=== PATIENT | male | born 1960 | race Caucasian/White ===

== ENCOUNTER 2023-04-21 11:36 | Outpatient (AMB) | payer OTHER, SELFPAY ==
--- NOTE | 2023-04-21 11:41 | MHC.OFFVIS ---
Intake Intake Visit Reasons: BPH Intake Note: New Patient presents for BPH/urgency/incontinence Urology Medications: none Blood Thinner: none PVR: 0ml's Size Worker Required: Yes Size Worker Name: Luisana Accompanied by: Self / Same As Patient Allergies No Known Allergies Allergy (Verified 04/21/23 20:35) Medication List - Last Reconciled 04/21/23 by LLOYD Steven No Known Home Meds HPI HPI Comments History of Present Illness Details Mariano is a 63-year-old male patient of Dr. Guillermo Dias. He has a past medical history of BPH, anxiety, chronic kidney disease, and allergic rhinitis. He presents to the office today as a new patient for ongoing lower urinary tract symptoms. In discussion with the patient today he reports to be doing and feeling well. He reports noting over the last year to be having intermittent episodes of urinary incontinence and frequency. He reports noting when he eats blueberries it causes urinary frequency. He reports following up with the previous urologist in [place] however was prescribed medications for his bladder/prostate in discusses his frustration with providers prescribing medications. He discusses at length believing in practicing functional medicine. He reports feeling medications make things worse. He discusses following up with a functional chief writer for his ongoing health issues. When asked he denies nocturia, hematuria, dysuria, foul smelling urine, changes to urinary stream, flank pain, fever, and or chills. He discusses practicing Kegel exercises to assist with bladder control however continues to have intermittent episodes of urinary frequency with episodes of incontinence if not near a bathroom. Discussed obtaining retroperitoneal ultrasound for further assessment evaluation as well as PSA. Patient discusses at length his reluctancy to having further workup. FRANCA offered however deferred. [facility] Medical History Chronic kidney disease BPH (benign prostatic hyperplasia) Anxiety Allergic rhinitis Review of Systems Const All systems reviewed & are unremarkable except as noted in HPI and below Reports no additional complaints Eyes Reports no additional complaints ENT Reports no additional complaints Card Reports no additional complaints Resp Reports no additional complaints GI Reports no additional complaints Reports as per HPI Musc Reports no additional complaints Neuro Reports no additional complaints Psych Reports no additional complaints Endo Reports no additional complaints Phil/Lymph Reports no additional complaints Aller/Immun Reports no additional complaints Physical Exam Const General: cooperative, healthy appearing, comfortable, no acute distress, well developed, alert and awake Orientation/consciousness: patient oriented x3 Limitations: no limitations HEENT Head: Yes normal to inspection, Yes normocephalic and Yes atraumatic Ears: hearing grossly normal bilaterally Eyes General: appearance normal, both eyes and all related structures Neck Neck: Yes normal visual inspection and Yes trachea midline Chest Chest palpation & inspection: normal inspection of the chest Resp Effort & Inspection: normal respiratory effort and able to speak in complete sentences Cardio Rate: regular rate GI Inspection: Yes normal to inspection General: Yes no CVA tenderness Back/Spine/Pelvis Back: no CVA tenderness Skin General skin exam: no rashes or lesions noted Neuro General: patient oriented x3 Extrem General: Yes normal to inspection Psych Appearance: grossly normal and well kempt Mental Status: mental status grossly normal Speech and movement: Normal speech and movement present and Clear speech present Affect: normal affect Attitude: cooperative Thought process: Normal thought process present Thought content: Normal thought content present Insight: Good insight present (Psych) Judgement: Good judgement present (Psych) Office Procedures Post Void Residual Post Residual Void Post Void Residual (PVR): 0 [id number] Void Residual by ultrasound Results AMB Urinalysis, Automated UA Leukoctes 0 Sharda/uL Last Edit by [employer] on 04/21/23 12:07 UA Nitrite Negative Last Edit by [employer] on 04/21/23 12:07 UA Urobilinogen 0.2 mg/dL Last Edit by [employer] on 04/21/23 12:07 UA Protein 0 mg/dL Last Edit by [employer] on 04/21/23 12:07 UA pH 6.0 Last Edit by [employer] on 04/21/23 12:07 UA Blood 0 Tk/uL Last Edit by [employer] on 04/21/23 12:07 UA Specific [place] 1.015 Last Edit by [employer] on 04/21/23 12:07 UA Ketone Negative Last Edit by [employer] on 04/21/23 12:07 UA Bilirubin 0 mg/dL Last Edit by [employer] on 04/21/23 12:07 UA Glucose 0 mg/dL Last Edit by [employer] on 04/21/23 12:07 Results Reviewed Results Reviewed: Laboratory Last Values Urine pH (Auto) 6.0 04/21/23 11:42 Specific [place] (Auto) 1.015 04/21/23 11:42 Urine Protein (Auto) 0 mg/dL 04/21/23 11:42 Glucose (UA)(Auto) 0 mg/dL 04/21/23 11:42 Urine Ketones (Auto) Negative 04/21/23 11:42 Urine Blood (Auto) 0 Tk/uL 04/21/23 11:42 Urine Nitrite (Auto) Negative 04/21/23 11:42 Urine Bilirubin (Auto) 0 mg/dL 04/21/23 11:42 Urine Urobilinogen (Auto) 0.2 mg/dL 04/21/23 11:42 Leukocyte Esterase (Auto) 0 Sharda/uL 04/21/23 11:42 Assessment & Plan Assessment & Plan (1) Lower urinary tract symptoms: Code(s): R39.9 - Unspecified symptoms and signs involving the genitourinary system (2) Urinary frequency: Code(s): R35.0 - Frequency of micturition (3) Urinary incontinence, urge: Code(s): N39.41 - Urge incontinence Plan In office urinalysis results reviewed with the patient today. PVR 0 mL. Will obtain retroperitoneal ultrasound for further assessment evaluation. Will obtain PSA for further assessment evaluation. Discussed at length potential causes for urinary frequency and stress incontinence. All questions were answered Information provided for pelvic floor therapy exercises. Discussed, educated, and instructed on the importance of drinking plenty of water daily Discussed possible near future in office cystoscopy if symptoms persist and/or worsen. Follow-up in 1-2 months with imaging to be completed prior; or sooner with any issues, concerns, and or questions. Orders: Orders AMB Urinalysis Automated Today Z13.9 - Encounter for screening, unspecified AMB Post Void Residual by ultrasound Today Z13.9 - Encounter for screening, unspecified US retroperitoneal comp Today R39.9 - Unspecified symptoms and signs involving the genitourinary system Prostate Specific Antigen Today N40.0 - Benign prostatic hyperplasia without lower urinary tract symptoms Coding Level of Care Code New Pt Level 4 (91968) Diagnoses Lower urinary tract symptoms R39.9 Urinary frequency R35.0 Urinary incontinence, urge N39.41 CPT Codes Post Residual Void - PVR CPT Code: 40646-Hbfc Void Residual by ultrasound ([id number]) Time Spent (min) 40
== END 2023-04-21 12:46 | disposition home or self-care (01) ==
PROVIDERS: PCP Student in an Organized Health Care Education/Training Program; Visit Provider Nurse Practitioner Family
DX: R39.9 Unspecified symptoms and signs involving the genitourinary system (principal); R35.0 Frequency of micturition; N39.41 Urge incontinence
CPT/HCPCS: 99204

== ENCOUNTER → 2023-04-21 11:36 | Outpatient (BNVA) | payer OTHER, SELFPAY | PROVIDERS: PCP Student in an Organized Health Care Education/Training Program; Visit Provider Nurse Practitioner Family | DX: R39.9 Unspecified symptoms and signs involving the genitourinary system (principal); R35.0 Frequency of micturition; N39.41 Urge incontinence | CPT/HCPCS: 51798; 81003 ==

== ENCOUNTER 2023-05-12 13:56 | Outpatient (REF) | payer OTHER, SELFPAY ==
--- NOTE | ~2023-05-12 | US_ITS ---
EXAMINATION: US RETROPERITONEAL COMPLETE (RENAL) CLINICAL INFORMATION: Unspecified symptoms and signs involving the genitourinary system. COMPARISON: None available. TECHNIQUE: Real-time imaging of the kidneys and bladder. FINDINGS: RIGHT KIDNEY: 10.2 x 3.4 x 5.7 cm (SAG x AP x TRV). The kidney is normal in size, contour, and echogenicity. Renal cortical thickness is normal. No calculi or focal parenchymal lesions. No hydronephrosis. LEFT KIDNEY: 10.2 x 4.3 x 4.8 cm (SAG x AP x TRV). The kidney is normal in size, contour, and echogenicity. Renal cortical thickness is normal. No calculi or focal parenchymal lesions. No hydronephrosis. BLADDER: Well distended and normal. Bilateral ureteral jets are demonstrated. Prevoid bladder volume is 404 mL. Postvoid bladder volume is 14 mL. ADDITIONAL FINDINGS: Prostate dimensions are 5.3 x 4.3 x 4.5 cm, volume 54.2 mL. US/US retroperitoneal comp IMPRESSION: 1. Unremarkable ultrasound appearance of the kidneys. 2. There is prostatomegaly.
[2023-05-12 17:50] LABS: Prostate Specific Antigen 0.42 ng/mL (<0.05-4.0)
== END 2023-05-12 13:57 | disposition home or self-care (01) ==
LOC: HO.US 13:56
PROVIDERS: PCP Student in an Organized Health Care Education/Training Program; Visit Provider Nurse Practitioner Family
DX: Z12.5 Encounter for screening for malignant neoplasm of prostate (principal); R39.9 Unspecified symptoms and signs involving the genitourinary system; N40.0 Benign prostatic hyperplasia without lower urinary tract symptoms
CPT/HCPCS: 36415; 76770; 84153

== ENCOUNTER 2023-05-24 09:35 | Outpatient (AMB) | payer OTHER, SELFPAY ==
--- NOTE | 2023-05-24 09:37 | MHC.OFFVIS ---
Intake Intake Visit Reasons: 1 mo/ US/PSA Intake Note: Patient presents for follow up BPH/urgency/incontinence/ultrasound (imaging 05/12/23) (psa 0.42) Urology Medications: none Blood Thinner: none PVR:107ml's Presser All Around Required: Yes Presser All Around Name: Luisana Accompanied by: Unknown Allergies No Known Allergies Allergy (Verified 05/24/23 10:01) Medication List - Last Reconciled 05/24/23 by LLOYD Steven No Known Home Meds HPI HPI Comments History of Present Illness Details Mariano is a 63-year-old male patient of Dr. Guillermo Dias who is accompanied by his daughter at [facility] office visit. He has a past medical history of BPH, anxiety, chronic kidney disease, and allergic rhinitis. He presents to the office today for a follow up. Of note, patient was seen [facility] one month ago as a new patient for ongoing lower urinary tract symptoms at which time a retroperitoneal ultrasound was ordered as well as a PSA for further assessment evaluation these results were reviewed with the patient is daughter today. Bilateral kidneys with no calculi, lesions, and or hydronephrosis noted. The bladder is well distended and normal. Bilateral ureteral jets are demonstrated. Pre void bladder volume is approximately 400 mL. Postvoid bladder volume is approximately 15 mL. Prostate volume is approximately 55 mL. PSA 05/24--0.4. In discussion with the patient today he reports to be doing and feeling well. He reports noting over the last year to be having intermittent episodes of urinary incontinence and frequency. He reports noting when he eats blueberries it causes urinary frequency. He reports following up with the previous urologist in [place] however was prescribed medications for his bladder/prostate and discusses his frustration with providers prescribing medications. He discusses at length believing in practicing functional medicine. He reports feeling medications make things worse. He discusses following up with a functional gem setter for his ongoing health issues. When asked he denies nocturia, hematuria, dysuria, foul smelling urine, changes to urinary stream, flank pain, fever, and or chills. He discusses practicing Kegel exercises to assist with bladder control however continues to have intermittent episodes of urinary frequency with episodes of incontinence if not near a bathroom. In office urinalysis results reviewed with the patient today. PVR 107 mL. Discussed at length enlarged prostate noted on retroperitoneal ultrasound as well as incomplete bladder emptying noted during office visit today. Discussed at length lifestyle modifications such as double voiding as well as continuing to practice pelvic floor exercises. Discussed possible urological medications such as finasteride verses alfuzosin verses terazosin verses Flomax. Discussed secondary side effects of these medications. Information provided. [facility] Medical History Chronic kidney disease BPH (benign prostatic hyperplasia) Anxiety Allergic rhinitis Review of Systems Const All systems reviewed & are unremarkable except as noted in HPI and below Reports no additional complaints Eyes Reports no additional complaints ENT Reports no additional complaints Card Reports no additional complaints Resp Reports no additional complaints GI Reports no additional complaints Reports as per HPI Musc Reports no additional complaints Neuro Reports no additional complaints Psych Reports no additional complaints Endo Reports no additional complaints Phil/Lymph Reports no additional complaints Aller/Immun Reports no additional complaints Physical Exam Const General: cooperative, healthy appearing, comfortable, no acute distress, well developed, alert and awake Orientation/consciousness: patient oriented x3 Limitations: no limitations HEENT Head: Yes normal to inspection, Yes normocephalic and Yes atraumatic Ears: hearing grossly normal bilaterally Eyes General: appearance normal, both eyes and all related structures Neck Neck: Yes normal visual inspection and Yes trachea midline Chest Chest palpation & inspection: normal inspection of the chest Resp Effort & Inspection: normal respiratory effort and able to speak in complete sentences Cardio Rate: regular rate GI Inspection: Yes normal to inspection General: Yes no CVA tenderness Back/Spine/Pelvis Back: no CVA tenderness Skin General skin exam: no rashes or lesions noted Neuro General: patient oriented x3 Extrem General: Yes normal to inspection Psych Appearance: grossly normal and well kempt Mental Status: mental status grossly normal Speech and movement: Normal speech and movement present and Clear speech present Affect: normal affect Attitude: cooperative Thought process: Normal thought process present Thought content: Normal thought content present Insight: Fair insight present (Psych) Judgement: Fair judgement present (Psych) Office Procedures Post Void Residual Post Residual Void Post Void Residual (PVR): [id number] Void Residual by ultrasound Results AMB Urinalysis, Automated UA Leukoctes 0 Sharda/uL Last Edit by Ce[employer] on 05/24/23 09:54 UA Nitrite Negative Last Edit by Ceasar Muñiz on 05/24/23 09:54 UA Urobilinogen 0.2 mg/dL Last Edit by Ceasar Muñiz on 05/24/23 09:54 UA Protein 0 mg/dL Last Edit by Ceasar Muñiz on 05/24/23 09:54 UA pH 7.0 Last Edit by Ceasar Muñiz on 05/24/23 09:54 UA Blood 0 Tk/uL Last Edit by Ceasar Muñiz on 05/24/23 09:54 UA Specific [place] 1.010 Last Edit by Ceasar Muñiz on 05/24/23 09:54 UA Ketone Negative Last Edit by Ceasar Muñiz on 05/24/23 09:54 UA Bilirubin 0 mg/dL Last Edit by Ceasar Muñiz on 05/24/23 09:54 UA Glucose 0 mg/dL Last Edit by Ceasar Muñiz on 05/24/23 09:54 Results Reviewed Results Reviewed: Laboratory Last Values Urine pH (Auto) 7.0 05/24/23 09:42 Specific [place] (Auto) 1.010 05/24/23 09:42 Urine Protein (Auto) 0 mg/dL 05/24/23 09:42 Glucose (UA)(Auto) 0 mg/dL 05/24/23 09:42 Urine Ketones (Auto) Negative 05/24/23 09:42 Urine Blood (Auto) 0 Tk/uL 05/24/23 09:42 Urine Nitrite (Auto) Negative 05/24/23 09:42 Urine Bilirubin (Auto) 0 mg/dL 05/24/23 09:42 Urine Urobilinogen (Auto) 0.2 mg/dL 05/24/23 09:42 Leukocyte Esterase (Auto) 0 Sharda/uL 05/24/23 09:42 Date of Service: 05/12/23 EXAMINATION: US RETROPERITONEAL COMPLETE (RENAL) FINDINGS: RIGHT KIDNEY: 10.2 x 3.4 x 5.7 cm (SAG x AP x TRV). The kidney is normal in size, contour, and echogenicity. Renal cortical thickness is normal. No calculi or focal parenchymal lesions. No hydronephrosis. LEFT KIDNEY: 10.2 x 4.3 x 4.8 cm (SAG x AP x TRV). The kidney is normal in size, contour, and echogenicity. Renal cortical thickness is normal. No calculi or focal parenchymal lesions. No hydronephrosis. BLADDER: Well distended and normal. Bilateral ureteral jets are demonstrated. Prevoid bladder volume is 404 mL. Postvoid bladder volume is 14 mL. ADDITIONAL FINDINGS: Prostate dimensions are 5.3 x 4.3 x 4.5 cm, volume 54.2 mL. IMPRESSION: 1. Unremarkable ultrasound appearance of the kidneys. 2. There is prostatomegaly. Assessment & Plan Assessment & Plan (1) Enlarged prostate: Code(s): N40.0 - Benign prostatic hyperplasia without lower urinary tract symptoms (2) Incomplete bladder emptying: Code(s): R33.9 - Retention of urine, unspecified (3) Urinary incontinence, urge: Code(s): N39.41 - Urge incontinence (4) Urinary frequency: Code(s): R35.0 - Frequency of micturition (5) Lower urinary tract symptoms: Code(s): R39.9 - Unspecified symptoms and signs involving the genitourinary system Plan In office urinalysis results reviewed with the patient today. PVR 107 mL. Recent retroperitoneal ultrasound results reviewed with the patient is daughter today; as noted above. Recent PSA results reviewed with the patient today; as noted above. Discussed at length potential causes for urinary frequency, stress incontinence, enlarged prostate, and incomplete bladder emptying All questions were answered Continue pelvic floor therapy exercises. Discussed, educated, and instructed on the importance of drinking plenty of water daily Discussed possible near future in office cystoscopy if symptoms persist and/or worsen. Information provided on urological medications; this was discussed at length Follow-up in 3 months with PVR; or sooner with any issues, concerns, and or questions. Orders: Orders AMB Urinalysis Automated Today Z13.9 - Encounter for screening, unspecified AMB Post Void Residual by ultrasound Today N39.41 - Urge incontinence Patient Instructions: The patient had an opportunity to ask questions regarding the treatment plan. All questions were answered. Physical exam, labs, and imaging were discussed and reviewed in detail. As well as risks, benefits, and discussion of treatment choices. No major barriers to understanding were identified. The patient expressed understanding and agreement with the above treatment plan. The patient was made aware they should contact our office by phone for worsening of their current condition, the appearance of new symptoms, or with any questions or concerns. Compliance is encouraged with any medications and follow up testing that is ordered. It is a privilege to be allowed the opportunity to participate in? your urological care.? Again, if you have any questions or concerns If you have any questions or concerns please do not hesitate to contact me. The office is [phone]. This note is constructed using voice recognition software. While every effort has been made to ensure accuracy engine specialist errors may have been included. Yours sincerely, LLOYD Steven Coding Level of Care Code Est Pt Level 4 (66871) Diagnoses Enlarged prostate N40.0 Incomplete bladder emptying R33.9 Urinary incontinence, urge N39.41 Urinary frequency R35.0 Lower urinary tract symptoms R39.9 CPT Codes Post Residual Void - PVR CPT Code: 91677-[id number] Void Residual by ultrasound ([id number]) Time Spent (min) 45
== END 2023-05-24 10:50 | disposition home or self-care (01) ==
PROVIDERS: PCP Student in an Organized Health Care Education/Training Program; Visit Provider Nurse Practitioner Family
DX: N40.0 Benign prostatic hyperplasia without lower urinary tract symptoms (principal); R33.9 Retention of urine, unspecified; N39.41 Urge incontinence; R35.0 Frequency of micturition; R39.9 Unspecified symptoms and signs involving the genitourinary system
CPT/HCPCS: 99214

== ENCOUNTER → 2023-05-24 09:35 | Outpatient (BNVA) | payer OTHER, SELFPAY | PROVIDERS: PCP Student in an Organized Health Care Education/Training Program; Visit Provider Nurse Practitioner Family | DX: N40.0 Benign prostatic hyperplasia without lower urinary tract symptoms (principal); N39.41 Urge incontinence; R33.9 Retention of urine, unspecified; R35.0 Frequency of micturition; R39.9 Unspecified symptoms and signs involving the genitourinary system | CPT/HCPCS: 51798; 81003; 99212 ==